=== PATIENT | male | born 1955 | race American Indian/Alaskan Native ===

== ENCOUNTER 2016-10-28 17:30 | Emergency (ER) | payer OTHER ==
[2016-10-28] MEDS ORDERED: XYLOCAINE 1% MPF 5 mL INFILTRATI ONE (21:45)
[2016-10-28] MEDS ORDERED: ROCEPHIN IM ONE (21:45)
[2016-10-28] MEDS ORDERED: TORADOL IM ONE (21:45)
--- NOTE | 2016-10-28 22:05 | Emergency Department Report ---
ED Extremity Problem HPI - General Chief complaint: Extremity Injury, Lower Stated complaint: LEFT FOOT SWOLLEN Time Seen by Provider: 10/28/16 21:33 Source: patient Mode of arrival: Ambulatory Limitations: No Limitations - History of Present Illness Initial comments: PT states he was treated for athlete's foot last year. PT states he ran out of RX cream. PT states he bout some otc cream but it did not seem to help. PT c/ o redness and swelling to L foot x 2 weeks. PT states he was taking ASA at home for pain, but no relief. PT has not taken anything for pain today. MD Complaint: extremity pain, extremity swelling Onset/Timin -: Gradual, week(s) Location: left, lower extremity (foot ) -: No fever Severity scale (0 -10): 10 Quality: sharp Consistency: constant Improves with: nothing Worsens with: weight bearing, walking, palpation Associated Symptoms: denies other symptoms - Related Data Previous Rx's Medication Instructions Recorded Last Taken Type Clotrimazole [Athlete's Foot] 60 gm TP TID #1 cream..g. 07/06/16 Unknown Rx Ibuprofen [Motrin 600 MG tab] 600 mg PO Q8H PRN #25 tablet 07/06/16 Unknown Rx Allergies Allergy/AdvReac Type Severity Reaction Status Date / Time No Known Allergies Allergy Verified 10/28/16 17:54 ED Review of Systems ROS: Stated complaint: LEFT FOOT SWOLLEN Other details as noted in HPI Comment: All other systems reviewed and negative Constitutional: denies: chills, fever Endocrine: denies: increased hunger, increased thirst, increased urine Gastrointestinal: denies: nausea, vomiting Musculoskeletal: as per HPI Skin: as per HPI, change in color ED Past Medical Hx - Past Medical History Hx Hypertension: No Hx Liver Disease: No Hx Renal Disease: No Hx Arthritis: Yes (L WRIST) Hx Seizures: No Hx Asthma: No - Surgical History Additional Surgical History: LEFT HAND SURGERY. LEFT GREAT TOE SURGERY - Social History Smoking Status: Never Smoker Substance Use Type: None - Medications Home Medications: Home Medications Medication Instructions Recorded Confirmed Last Taken Type Clotrimazole [Athlete's Foot] 60 gm TP TID #1 cream..g. 07/06/16 Unknown Rx Ibuprofen [Motrin 600 MG tab] 600 mg PO Q8H PRN #25 tablet 11/26/16 Unknown Rx ED Physical Exam - General Limitations: No Limitations General appearance: alert, in no apparent distress - Head Head exam: Present: atraumatic, normocephalic - Eye Eye exam: Present: normal appearance. Absent: conjunctival injection - ENT ENT exam: Present: normal exam - Neck Neck exam: Present: normal inspection - Respiratory Respiratory exam: Present: normal lung sounds bilaterally. Absent: respiratory distress - Cardiovascular Cardiovascular Exam: Present: regular rate, normal rhythm - Extremities Exam Extremities exam: Present: tenderness, normal capillary refill, pedal edema - Expanded Lower Extremity Exam Left Foot/Toe exam: Present: tenderness, swelling, erythema (to L dorsal foot with warmth and tenderness ). Absent: ecchymosis, deformity, puncture wound Neuro vascular tendon exam: Present: no vascular compromise. Absent: pulse deficit - Back Exam Back exam: Present: normal inspection, full ROM - Neurological Exam Neurological exam: Present: alert, oriented X3 - Psychiatric Psychiatric exam: Present: normal affect, normal mood - Skin Skin exam: Present: warm, dry, erythema, other (white flaky rash in between toes of the L foot ) ED Course Vital Signs 10/28/16 17:57 Temperature 98.5 F Pulse Rate 92 H Respiratory 19 Rate Blood Pressure 137/93 O2 Sat by Pulse 99 Oximetry - Reevaluation(s) Reevaluation #1: 10/28/16 22:04 PT aware of dx and plan of care. PT has no questions at this time. Strict return precautions given - Pulse Oximetry Interpretation Digit-Finger Initial Pulse Oximetry Readin Actions Taken: none ED Medical Decision Making - Differential Diagnosis tinea pedis, gout, cellulitis Critical care attestation.: If time is entered above; I have spent that time in minutes in the direct care of this critically ill patient, excluding procedure time. ED Disposition Clinical Impression: Cellulitis of foot without toes, left, Tinea pedis of left foot Disposition: DISCHARGED TO HOME OR SELFCARE Is pt being admited?: No Does the pt Need Aspirin: No Condition: Stable Instructions: Tinea Pedis (ED), Cellulitis (ED) Additional Instructions: Recheck in 2 days, sooner if fevers, chills, nausea or vomiting Have your BP rechecked on follow up Referrals: PRIMARY CARE, [Primary Care Provider] - 3-5 Days Time of Disposition: 22:10
[2016-10-28 22:21] VITALS: BP 158/101
== END 2016-10-28 22:21 | disposition home or self-care (01) ==
LOC: ED 17:30
DX: L03.116 Cellulitis of left lower limb (principal); B35.3 Tinea pedis; M19.90 Unspecified osteoarthritis, unspecified site
CPT/HCPCS: 96372; 99282; J0696; J1885

== ENCOUNTER 2017-09-30 10:44 | Emergency (ER) | payer OTHER ==
[2017-09-30 11:00] VITALS: BP 133/86
[2017-09-30 11:18] LABS: Basophils % (Auto) 0.3 % (0.0-1.8); Hematocrit 40.2 % (35.5-45.6); Hemoglobin 13.8 gm/dl (11.8-15.2); Lymphocytes % (Auto) 10.4 % (13.4-35.0); Mean Corpuscular HGB Conc 34 % (32-34); Mean Corpuscular Hemoglobin 31 pg (28-32); Mean Corpuscular Volume 90 fl (84-94); Monocytes # (Auto) 0.7 K/mm3 (0.0-0.8); Monocytes % (Auto) 7.1 % (0.0-7.3); Platelet Count 246 K/mm3 (140-440); Red Blood Count 4.47 M/mm3 (3.65-5.03); Red Cell Distribution Width 13.4 % (13.2-15.2)
--- NOTE | 2017-09-30 11:34 | XRay Report ---
RIGHT KNEE, 3 views: History: Right knee pain Findings: There is severe anterior soft tissue swelling which could represent a cellulitis. No soft tissue gas or foreign body is identified. There are moderate osteoarthritic changes in the medial compartment and patellofemoral space. No evidence for fracture or bone lesion. Small joint effusion. IMPRESSION: Osteoarthritis. Small joint effusion. Nonspecific anterior soft tissue swelling which could represent cellulitis.
[2017-09-30 11:56] LABS: BUN/Creatinine Ratio 13; Blood Urea Nitrogen 10 mg/dL (9-20); Hemolysis Index 2
[2017-09-30] MEDS ORDERED: MOTRIN PO ONE (13:00)
[2017-09-30] MEDS ORDERED: VIBRAMYCIN PO ONE (13:00)
--- NOTE | 2017-09-30 13:01 | Emergency Department Report ---
ED Extremity Problem HPI - General Chief complaint: Extremity Injury, Lower Stated complaint: RIGHT KNEE PAIN Time Seen by Provider: 09/30/17 12:52 Source: patient Mode of arrival: Ambulatory Limitations: No Limitations - History of Present Illness Initial comments: Patient is a 62-year-old [place] male who states he may have had a bug bite to the right anterior knee 2 weeks ago now has swelling and redness and pain to the anterior knee. He is able to bend the knee however there is pain. Pain is an aching sensation 6 out of 10 in severity. Patient denies any fever nausea vomiting diarrhea chest pain shortness of breath this time. He is amateur and able to bear weight. - Related Data Previous Rx's Medication Instructions Recorded Last Taken Type Cephalexin [Keflex] 500 mg PO Q6HR #40 capsule 10/28/16 Unknown Rx Clotrimazole [Athlete's Foot] 60 gm TP BID #1 cream..g. 10/28/16 Unknown Rx Sulfamethoxazole/Trimethoprim 1 each PO BID #20 tablet 10/28/16 Unknown Rx [Bactrim DS TAB] traMADol [Ultram] 50 mg PO Q6HR PRN #14 tablet 10/28/16 Unknown Rx Doxycycline [Vibramycin CAP] 100 mg PO Q12HR #20 capsule 09/30/17 Unknown Rx Ibuprofen [Motrin] 800 mg PO Q8HR PRN #20 tablet 09/30/17 Unknown Rx oxyCODONE /ACETAMINOPHEN [Percocet 1 tab PO Q6HR PRN #12 tablet 09/30/17 Unknown Rx 5/325] Allergies Allergy/AdvReac Type Severity Reaction Status Date / Time No Known Allergies Allergy Verified 10/28/16 17:54 ED Review of Systems ROS: Stated complaint: RIGHT KNEE PAIN Other details as noted in HPI Comment: All other systems reviewed and negative ED Past Medical Hx - Past Medical History Previous Medical History?: Yes Hx Hypertension: No Hx Liver Disease: No Hx Renal Disease: No Hx Arthritis: Yes (L WRIST) Hx Seizures: No Hx Asthma: No - Surgical History Past Surgical History?: Yes Additional Surgical History: LEFT HAND SURGERY. LEFT GREAT TOE SURGERY - Social History Smoking Status: Never Smoker - Medications Home Medications: Home Medications Medication Instructions Recorded Confirmed Last Taken Type Cephalexin [Keflex] 500 mg PO Q6HR #40 capsule 10/28/16 Unknown Rx Clotrimazole [Athlete's Foot] 60 gm TP BID #1 cream..g. 10/28/16 Unknown Rx Sulfamethoxazole/Trimethoprim 1 each PO BID #20 tablet 10/28/16 Unknown Rx [Bactrim DS TAB] traMADol [Ultram] 50 mg PO Q6HR PRN #14 tablet 10/28/16 Unknown Rx Doxycycline [Vibramycin CAP] 100 mg PO Q12HR #20 capsule 09/30/17 Unknown Rx Ibuprofen [Motrin] 800 mg PO Q8HR PRN #20 tablet 09/30/17 Unknown Rx oxyCODONE /ACETAMINOPHEN [Percocet 1 tab PO Q6HR PRN #12 tablet 09/30/17 Unknown Rx 5/325] ED Physical Exam - General Limitations: No Limitations General appearance: alert, in no apparent distress - Head Head exam: Present: atraumatic, normocephalic - Eye Eye exam: Present: normal appearance - ENT ENT exam: Present: mucous membranes moist - Neck Neck exam: Present: normal inspection - Respiratory Respiratory exam: Present: normal lung sounds bilaterally. Absent: respiratory distress - Cardiovascular Cardiovascular Exam: Present: regular rate, normal rhythm. Absent: systolic murmur, diastolic murmur, rubs, gallop - GI/Abdominal GI/Abdominal exam: Present: soft, normal bowel sounds - Rectal Rectal exam: Present: deferred - Extremities Exam Extremities exam: Present: normal inspection, tenderness, joint swelling ( patient has erythema induration to the anterior knee with tenderness. There is warmth. There is no areas of fluctuance at this time. The posterior knee is non-painful he has full range of motion to the knee.) - Back Exam Back exam: Present: normal inspection - Neurological Exam Neurological exam: Present: alert, oriented X3 - Psychiatric Psychiatric exam: Present: normal affect, normal mood - Skin Skin exam: Present: warm, dry, intact, normal color. Absent: rash ED Course Vital Signs 09/30/17 10:55 Temperature 98.2 F Pulse Rate 105 H Respiratory 18 Rate Blood Pressure 133/86 O2 Sat by Pulse 97 Oximetry ED Medical Decision Making - Lab Data Result diagrams: 09/30/17 11:11 09/30/17 11:11 - Medical Decision Making Patient will be treated for cellulitis of the right knee will follow with orthopedics. Critical care attestation.: If time is entered above; I have spent that time in minutes in the direct care of this critically ill patient, excluding procedure time. ED Disposition Clinical Impression: Cellulitis of knee Disposition: DC-01 TO HOME OR SELFCARE Is pt being admited?: No Does the pt Need Aspirin: No Condition: Stable Instructions: Cellulitis (ED) Prescriptions: Doxycycline [Vibramycin CAP] 100 mg PO Q12HR #20 capsule Ibuprofen [Motrin] 800 mg PO Q8HR PRN #20 tablet PRN Reason: Pain oxyCODONE /ACETAMINOPHEN [Percocet 5/325] 1 tab PO Q6HR PRN #12 tablet PRN Reason: Pain Referrals: VELMA IQBAL MD [Staff Physician] - 3-5 Days
== END 2017-09-30 13:06 | disposition home or self-care (01) ==
LOC: ED 10:44
DX: L03.115 Cellulitis of right lower limb (principal); M19.90 Unspecified osteoarthritis, unspecified site
CPT/HCPCS: 36415; 80048; 85025; 99284

== ENCOUNTER 2017-10-05 00:31 | Emergency (ER) | payer OTHER ==
[2017-10-05] MEDS ORDERED: ASPIRIN PO ONE (01:58)
[2017-10-05 02:19] LABS: Basophils % (Auto) 0.5 % (0.0-1.8); Eosinophils # (Auto) 0.1 K/mm3 (0.0-0.4); Eosinophils % (Auto) 2.4 % (0.0-4.3); Hemoglobin 12.4 gm/dl (11.8-15.2); Lymphocytes # (Auto) 1.4 K/mm3 (1.2-5.4); Lymphocytes % (Auto) 30.2 % (13.4-35.0); Mean Corpuscular HGB Conc 34 % (32-34); Mean Corpuscular Hemoglobin 31 pg (28-32); Mean Corpuscular Volume 90 fl (84-94); Monocytes # (Auto) 0.5 K/mm3 (0.0-0.8); Monocytes % (Auto) 11.2 % (0.0-7.3); Platelet Count 310 K/mm3 (140-440); Red Blood Count 4.01 M/mm3 (3.65-5.03); Red Cell Distribution Width 13.2 % (13.2-15.2)
[2017-10-05 02:35] LABS: BUN/Creatinine Ratio 14; Blood Urea Nitrogen 11 mg/dL (9-20); Calcium 8.8 mg/dL (8.4-10.2); Hemolysis Index 0
--- NOTE | 2017-10-05 03:46 | XRay Report ---
FINAL REPORT EXAM: XR CHEST ROUTINE 2V HISTORY: chest pain COMPARISON: None available. FINDINGS:: Frontal and lateral views of the chest obtained. Cardiac silhouette is within normal limits. No focal consolidation or effusion. No pneumothorax. Visualized bony thorax is grossly intact. Mild tortuosity of the thoracic aorta. IMPRESSION:: No acute findings.
[2017-10-05] MEDS ORDERED: ZOFRAN ODT PO ONE (03:57)
[2017-10-05] MEDS ORDERED: ALUM-MAG HYDROX-SIMETH 200-200-20MG/5ML PO ONE (03:57)
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
--- NOTE | 2017-10-05 05:41 | Ultrasound Report ---
FINAL REPORT PROCEDURE: US ABDOMEN LIMITED TECHNIQUE: Real-time sonography in multiple planes of the gallbladder fossa and CBD with imaging of the adjacent liver, pancreas, and right kidney was performed with image documentation. CPT 61307 HISTORY: epigastric pain COMPARISON: No prior studies are available for comparison. FINDINGS: Liver: Normal size and echotexture with no evidence of cystic or solid mass lesion. Gallbladder: There is sludge in the gallbladder. There are no stones. There is no wall thickening or pericholecystic cystic fluid.. Intrahepatic bile ducts: Normal . Extrahepatic bile ducts: Normal . Pancreas: Normal as visualized with suboptimal depiction of the pancreatic tail. Right kidney: Normal echotexture. No focal renal mass, calculus, or hydronephrosis. Other: No free fluid. IMPRESSION: There is sludge in the gallbladder. There are no gallstones. There is no gallbladder wall thickening or pericholecystic fluid. There is no biliary ductal dilatation.
[2017-10-05 07:15] VITALS: BP 155/95
== END 2017-10-05 07:15 | disposition home or self-care (01) ==
LOC: ED 00:31
DX: R07.89 Other chest pain (principal); M19.90 Unspecified osteoarthritis, unspecified site
CPT/HCPCS: 36415; 71046; 76705; 80048; 84484; 85025; 93005; 93010; Q0162

== ENCOUNTER 2020-05-25 13:08 | Inpatient (IN) | payer OTHER ==
[2020-05-25] MEDS ORDERED: SODIUM CHLORIDE 0.9% 1000 ML IV SOLN IV ONE (14:17)
[2020-05-25] MEDS ORDERED: cefTRIAXone/NS 2 GM/100 ML 2 GM/100 ML BAG IV ONE ×2 (14:33→14:35)
[2020-05-25 14:37] LABS: Hematocrit 39.3 % (35.5-45.6); Hemoglobin 13.4 gm/dl (11.8-15.2); Mean Corpuscular HGB Conc 34 % (32-34); Mean Corpuscular Volume 91 fl (84-94); Platelet Count 509 K/mm3 (140-440); Red Blood Count 4.31 M/mm3 (3.65-5.03); Red Cell Distribution Width 14.1 % (13.2-15.2)
--- NOTE | 2020-05-25 14:43 | XRay Report ---
XR chest 1V ap INDICATION / CLINICAL INFORMATION: sepsis COMPARISON: 10/05/2017 report was reviewed FINDINGS: SUPPORT DEVICES: None. HEART / MEDIASTINUM: No significant abnormality. LUNGS / PLEURA: Lungs are clear. Costophrenic sulci are sharp. No pneumothorax. ADDITIONAL FINDINGS: No significant additional findings. IMPRESSION: 1. No acute findings. Signer Name: Teddy Fulton MD Signed: 05/25/2020 2:39 PM Workstation Name: [id number]
[2020-05-25 15:07] LABS: Calcium 10.3 mg/dL (8.4-10.2)
[2020-05-25 16:24] LABS: Bilirubin,Urine NEG (Negative); Blood,Urine LG (Negative); Color,Urine Amber (Yellow); Hyaline Casts,Urine 9 /LPF; Mucus,Urine FEW /HPF; Urobilinogen,Urine < 2.0 mg/dL (<2.0)
[2020-05-25 16:26] LABS: RBC,Urine > 182.0 /HPF (0.0-6.0); WBC,Urine > 182.0 /HPF (0.0-6.0)
--- NOTE | 2020-05-25 17:49 | Emergency Department Report ---
ED Abdominal Pain HPI - General Chief Complaint: Weakness Stated Complaint: ABD PAINS Time Seen by Provider: 05/25/20 14:16 Source: patient Mode of arrival: Ambulatory Limitations: No Limitations - History of Present Illness Initial Comments: Patient is a 64-year-old F Turkish male who has a history of prostate cancer who has just finished radiation treatment chemotherapy who is presenting with fatigue for the last several days as well as some worsening abdominal pain over the last month. He states that he has this sensation that he needs to urinate however only small amounts are coming out. He is going very frequently. Patient has some nausea but no vomiting. He denies fevers chills cough cold or congestion. States he feels somewhat constipated as well his last bowel movement was 2 days ago. Severity scale (0 -10): 0 - Related Data Previous Rx's Medication Instructions Recorded Last Taken Type Clotrimazole [Athlete's Foot] 60 gm TP BID #1 cream..g. 10/28/16 Unknown Rx Sulfamethoxazole/Trimethoprim 1 each PO BID #20 tablet 10/28/16 Unknown Rx [Bactrim DS TAB] cephALEXin [Keflex] 500 mg PO Q6HR #40 capsule 10/28/16 Unknown Rx traMADoL [Ultram] 50 mg PO Q6HR PRN #14 tablet 10/28/16 Unknown Rx DOXYCYCLINE Hyclate [Vibramycin 100 mg PO Q12HR #20 capsule 09/30/17 Unknown Rx CAP] Ibuprofen [Motrin] 800 mg PO Q8HR PRN #20 tablet 09/30/17 Unknown Rx oxyCODONE /ACETAMINOPHEN [Percocet 1 tab PO Q6HR PRN #12 tablet 09/30/17 Unknown Rx 5/325] Dicyclomine [Bentyl] 10 mg PO QID #12 capsule 10/05/17 Unknown Rx Famotidine [Pepcid] 20 mg PO BID #20 tablet 10/05/17 Unknown Rx traMADoL [Ultram] 50 mg PO Q6HR PRN #12 tablet 10/05/17 Unknown Rx Allergies Allergy/AdvReac Type Severity Reaction Status Date / Time No Known Allergies Allergy Verified 10/28/16 17:54 ED Review of Systems ROS: Stated complaint: ABD PAINS Other details as noted in HPI Comment: All other systems reviewed and negative ED Past Medical Hx - Past Medical History Hx Hypertension: No Hx Liver Disease: No Hx Renal Disease: No Hx Arthritis: Yes (L WRIST) Hx Seizures: No Hx Asthma: No Additional medical history: radiation 5 days a week - Surgical History Additional Surgical History: LEFT HAND SURGERY. LEFT GREAT TOE SURGERY, Biopsy - Social History Smoking Status: Never Smoker - Medications Home Medications: Home Medications Medication Instructions Recorded Confirmed Last Taken Type Clotrimazole [Athlete's Foot] 60 gm TP BID #1 cream..g. 10/28/16 Unknown Rx Sulfamethoxazole/Trimethoprim 1 each PO BID #20 tablet 10/28/16 Unknown Rx [Bactrim DS TAB] cephALEXin [Keflex] 500 mg PO Q6HR #40 capsule 10/28/16 Unknown Rx traMADoL [Ultram] 50 mg PO Q6HR PRN #14 tablet 10/28/16 Unknown Rx DOXYCYCLINE Hyclate [Vibramycin 100 mg PO Q12HR #20 capsule 09/30/17 Unknown Rx CAP] Ibuprofen [Motrin] 800 mg PO Q8HR PRN #20 tablet 09/30/17 Unknown Rx oxyCODONE /ACETAMINOPHEN [Percocet 1 tab PO Q6HR PRN #12 tablet 09/30/17 Unknown Rx 5/325] Dicyclomine [Bentyl] 10 mg PO QID #12 capsule 10/05/17 Unknown Rx Famotidine [Pepcid] 20 mg PO BID #20 tablet 10/05/17 Unknown Rx traMADoL [Ultram] 50 mg PO Q6HR PRN #12 tablet 10/05/17 Unknown Rx ED Physical Exam - General Limitations: No Limitations General appearance: alert, in no apparent distress - Head Head exam: Present: atraumatic, normocephalic - Eye Eye exam: Present: normal appearance, PERRL, EOMI - ENT ENT exam: Present: mucous membranes moist - Neck Neck exam: Present: normal inspection - Respiratory Respiratory exam: Present: normal lung sounds bilaterally. Absent: respiratory distress, wheezes, rales, rhonchi - Cardiovascular Cardiovascular Exam: Present: regular rate, normal rhythm. Absent: systolic murmur, diastolic murmur, rubs, gallop - GI/Abdominal GI/Abdominal exam: Present: distended, tenderness, guarding, hyperactive bowel sounds. Absent: rebound, rigid - Rectal Rectal exam: Present: deferred - Extremities Exam Extremities exam: Present: normal inspection - Back Exam Back exam: Present: normal inspection - Neurological Exam Neurological exam: Present: alert, oriented X3 - Psychiatric Psychiatric exam: Present: normal affect, normal mood - Skin Skin exam: Present: warm, dry, intact, normal color. Absent: rash ED Course Vital Signs 05/25/20 05/25/20 05/25/20 13:44 14:16 16:17 Temperature 98.1 F Pulse Rate 106 H 84 Respiratory 14 24 Rate Blood Pressure 84/60 Blood Pressure 76/49 118/76 [Right] O2 Sat by Pulse 97 100 Oximetry ED Medical Decision Making - Lab Data Result diagrams: 05/25/20 14:11 05/25/20 14:11 Lab Results 05/25/20 05/25/20 05/25/20 Range/Units 14:11 14:11 14:21 WBC 8.0 (4.5-11.0) K/mm3 RBC 4.31 (3.65-5.03) M/mm3 Hgb 13.4 (11.8-15.2) gm/dl Hct 39.3 (35.5-45.6) % MCV 91 (84-94) fl MCH 31 (28-32) pg MCHC 34 (32-34) % RDW 14.1 (13.2-15.2) % Plt Count 509 H (140-440) K/mm3 APTT (24.2-36.6) Sec. Sodium 127 L (137-145) mmol/L Potassium 4.9 (3.6-5.0) mmol/L Chloride 87.9 L (98-107) mmol/L Carbon Dioxide 24 (22-30) mmol/L Anion Gap 20 mmol/L BUN 52 H (9-20) mg/dL Creatinine 1.9 H (0.8-1.3) mg/dL Estimated GFR 44 ml/min BUN/Creatinine Ratio 27 % Glucose 138 H (75-100) mg/dL Lactic Acid 1.70 (0.7-2.0) mmol/L Calcium 10.3 H (8.4-10.2) mg/dL Total Bilirubin 1.00 (0.1-1.2) mg/dL AST 11 (5-40) units/L ALT 11 (7-56) units/L Alkaline Phosphatase 96 (35-129) units/L Total Protein 7.8 (6.3-8.2) g/dL Albumin 4.0 (3.9-5) g/dL Albumin/Globulin Ratio 1.1 % Urine Color (Yellow) Urine Turbidity (Clear) Urine pH (5.0-7.0) Ur Specific [place] (1.003-1.030) Urine Protein (Negative) mg/dL Urine Glucose (UA) (Negative) mg/dL Urine Ketones (Negative) mg/dL Urine Blood (Negative) Urine Nitrite (Negative) Urine Bilirubin (Negative) Urine Urobilinogen (<2.0) mg/dL Ur Leukocyte Esterase (Negative) Urine WBC (Auto) (0.0-6.0) /HPF Urine RBC (Auto) (0.0-6.0) /HPF U Epithel Cells (Auto) (0-13.0) /HPF Urine WBC Clumps /HPF Hyaline Casts /LPF Urine Mucus /HPF Urine Yeast (Budding) /HPF 05/25/20 05/25/20 Range/Units 15:03 16:19 WBC (4.5-11.0) K/mm3 RBC (3.65-5.03) M/mm3 Hgb (11.8-15.2) gm/dl Hct (35.5-45.6) % MCV (84-94) fl MCH (28-32) pg MCHC (32-34) % RDW (13.2-15.2) % Plt Count (140-440) K/mm3 APTT 24.8 (24.2-36.6) Sec. Sodium (137-145) mmol/L Potassium (3.6-5.0) mmol/L Chloride (98-107) mmol/L Carbon Dioxide (22-30) mmol/L Anion Gap mmol/L BUN (9-20) mg/dL Creatinine (0.8-1.3) mg/dL Estimated GFR ml/min BUN/Creatinine Ratio % Glucose (75-100) mg/dL Lactic Acid (0.7-2.0) mmol/L Calcium (8.4-10.2) mg/dL Total Bilirubin (0.1-1.2) mg/dL AST (5-40) units/L ALT (7-56) units/L Alkaline Phosphatase (35-129) units/L Total Protein (6.3-8.2) g/dL Albumin (3.9-5) g/dL Albumin/Globulin Ratio % Urine Color [place] (Yellow) Urine Turbidity Cloudy (Clear) Urine pH 6.0 (5.0-7.0) Ur Specific [place] 1.013 (1.003-1.030) Urine Protein 100 mg/dl (Negative) mg/dL Urine Glucose (UA) Neg (Negative) mg/dL Urine Ketones Neg (Negative) mg/dL Urine Blood Lg (Negative) Urine Nitrite Pos (Negative) Urine Bilirubin Neg (Negative) Urine Urobilinogen < 2.0 (<2.0) mg/dL Ur Leukocyte Esterase Lg (Negative) Urine WBC (Auto) > 182.0 H (0.0-6.0) /HPF Urine RBC (Auto) > 182.0 (0.0-6.0) /HPF U Epithel Cells (Auto) 1.0 (0-13.0) /HPF Urine WBC Clumps 3+ /HPF Hyaline Casts 9 /LPF Urine Mucus Few /HPF Urine Yeast (Budding) 2+ /HPF Patient's baseline BUN/creatinine is normal and the last we have on file from 2 years ago was 11 and 0.5 respectively - Medical Decision Making Casillas catheter was placed after I did a bladder scan with ultrasound. Patient immediately had approximately a liter of urine drained. There is evidence of urinary tract infection. Patient also is in renal failure from his obstruction. Patient was given IV fluids which did improve his blood pressure. Patient be admitted for UTI. Critical care attestation.: If time is entered above; I have spent that time in minutes in the direct care of this critically ill patient, excluding procedure time. ED Disposition Clinical Impression: Acute renal injury, Urinary obstruction Acute cystitis Qualifiers: Hematuria presence: with hematuria Qualified Code(s): N30.01 - Acute cystitis with hematuria Disposition: OP ADMIT IP TO THIS HOSP Is pt being admited?: Yes Does the pt Need Aspirin: No Condition: Stable Time of Disposition: 17:51
[2020-05-25] MEDS ORDERED: SODIUM CHLORIDE 0.9% 1000 ML 1,000 ML IV ONE (18:39)
--- NOTE | 2020-05-25 18:42 | History and Physical Report ---
History of Present Illness Chief complaint: I feel weak in my stomach is getting big History of present illness: 64 YO Male with CaP S/P Radiation Therapy, OA presents to ED for evaluation. Patient states that he had experienced abdominal discomfort over the past 1 month with progressively worsening symptoms over the past 2 days. Patient acknowledges dysuria as well as urinary urgency. Patient also acknowledges s mall urine stream. Patient also acknowledges nausea but no vomiting. Patient transported to [facility] via private vehicle for further care and evaluation. Patient seen and evaluated in the emergency department. Lab and imaging studies reviewed. Patient underwent bladder scan in the emergency department and was found to have a distended bladder with over 1 L of urine. Patient also found to have concomitant urinary tract infection. Patient underwent placement of a Casillas catheter with resultant decompression of the bladder. Patient admitted to medical floor and initiated on IV antibiotic therapy. Patient denies fever, chills, chest pain, palpitations, productive cough, skin rash, recent ill contacts or known exposure to COVID-19. Advanced care planning conducted in ED. No prior admission for review. All medication list the time of admission has been reconciled. Past History Past Medical History: arthritis Past Surgical History: Other (LEFT HAND SURGERY. LEFT GREAT TOE SURGERY, Biopsy) Social history: . denies: smoking, alcohol abuse, prescription drug abuse Family history: no significant family history (Reviewed) Medications and Allergies Allergies Allergy/AdvReac Type Severity Reaction Status Date / Time No Known Allergies Allergy Verified 10/28/16 17:54 Home Medications Medication Instructions Recorded Confirmed Last Taken Type Clotrimazole [Athlete's Foot] 60 gm TP BID #1 cream..g. 10/28/16 Unknown Rx Sulfamethoxazole/Trimethoprim 1 each PO BID #20 tablet 10/28/16 Unknown Rx [Bactrim DS TAB] cephALEXin [Keflex] 500 mg PO Q6HR #40 capsule 10/28/16 Unknown Rx traMADoL [Ultram] 50 mg PO Q6HR PRN #14 tablet 10/28/16 Unknown Rx DOXYCYCLINE Hyclate [Vibramycin 100 mg PO Q12HR #20 capsule 09/30/17 Unknown Rx CAP] Ibuprofen [Motrin] 800 mg PO Q8HR PRN #20 tablet 09/30/17 Unknown Rx oxyCODONE /ACETAMINOPHEN [Percocet 1 tab PO Q6HR PRN #12 tablet 09/30/17 Unknown Rx 5/325] Dicyclomine [Bentyl] 10 mg PO QID #12 capsule 10/05/17 Unknown Rx Famotidine [Pepcid] 20 mg PO BID #20 tablet 10/05/17 Unknown Rx traMADoL [Ultram] 50 mg PO Q6HR PRN #12 tablet 10/05/17 Unknown Rx Active Meds: Active Medications Sodium Chloride (Nacl 0.9% 1000 Ml) 1,000 mls @ 125 mls/hr IV ONCE ONE Stop: 05/26/20 02:38 Review of Systems Constitutional: no weight loss, no weight gain, no fever, no chills Ears, nose, mouth and throat: no ear pain, no tinnitis, no decreased hearing, no nasal congestion Cardiovascular: no chest pain, no orthopnea Respiratory: no cough, no cough with sputum, no excessive sputum, no shortness of breath Gastrointestinal: abdominal pain, nausea, no vomiting, no diarrhea, no melena Genitourinary Male: dysuria, urinary frequency, urinary hesitancy, no incontinence Rectal: no pain, no incontinence, no bleeding Musculoskeletal: no neck stiffness, no arm numbness/tingling, no low back pain, no shooting leg pain Integumentary: no pruritis, no redness, no wounds, no boils Neurological: no transient paralysis, no paralysis, no weakness, no numbness, no tingling, no seizures Psychiatric: no anxiety, no change in sleep habits, no insomnia, no hypersomnia, no change in appetite, no suicidal ideation, no disorientation Endocrine: no cold intolerance, no heat intolerance, no polydipsia, no nocturia, no excessive sweating Hematologic/Lymphatic: no easy bruising, no easy bleeding, no lymphadenopathy Allergic/Immunologic: no urticaria, no allergic rhinitis, no persistent infections, no anaphylaxis Exam - Constitutional Vitals: Temp Pulse Resp BP Pulse Ox 98.1 F 84 24 118/76 100 05/25/20 13:44 05/25/20 14:16 05/25/20 14:16 05/25/20 16:17 05/25/20 14:16 General appearance: Present: mild distress - EENT Eyes: Present: PERRL ENT: hearing intact, clear oral mucosa - Neck Neck: Present: supple, normal ROM - Respiratory Respiratory effort: normal Respiratory: bilateral: CTA - Cardiovascular Heart Sounds: Present: S1 & S2. Absent: rub, click - Extremities Extremities: pulses symmetrical, No edema Peripheral Pulses: within normal limits - Abdominal General gastrointestinal: Present: soft, non-tender, distended, normal bowel sounds Male genitourinary: Present: normal - Integumentary Integumentary: Present: clear, warm, dry - Musculoskeletal Musculoskeletal: gait normal, strength equal bilaterally - Psychiatric Psychiatric: appropriate mood/affect, intact judgment & insight - Neurologic Neurologic: CNII-XII intact, moves all extremities Results - Labs CBC & Chem 7: 05/25/20 14:11 05/25/20 14:11 Labs: Abnormal lab results 05/25/20 05/25/20 05/25/20 Range/Units 14:11 14:11 16:19 Plt Count 509 H (140-440) K/mm3 Sodium 127 L (137-145) mmol/L Chloride 87.9 L (98-107) mmol/L BUN 52 H (9-20) mg/dL Creatinine 1.9 H (0.8-1.3) mg/dL Glucose 138 H (75-100) mg/dL Calcium 10.3 H (8.4-10.2) mg/dL Urine WBC (Auto) > 182.0 H (0.0-6.0) /HPF Assessment and Plan - Patient Problems (1) UTI (urinary tract infection) Current Visit: Yes Status: Acute Qualifiers: Encounter type: initial encounter Plan to address problem: Urinalysis, CBC, CMP, IV antibiotic therapy, supportive care. (2) HEATHER (acute kidney injury) Current Visit: Yes Status: Acute Plan to address problem: Monitor urine output every shift, IV fluid resuscitation therapy, BMP, repeat BMP in a.m. to monitor serum creatinine. (3) Hyponatremia syndrome Current Visit: Yes Status: Acute Plan to address problem: IV fluid resuscitation therapy, BMP, repeat BMP in a.m. to monitor serum sodium. (4) Urinary obstruction Current Visit: Yes Status: Acute Plan to address problem: Patient underwent bladder scan in the emergency department and subsequent placement of Casillas catheter for bladder decompression. Outpatient urology follow-up. (5) DVT prophylaxis Current Visit: Yes Status: Acute Plan to address problem: SCD to bilateral lower extremities while in bed, patient is ambulatory. (6) Advance care planning Current Visit: Yes Status: Acute Plan to address problem: Disease education conducted, prognosis discussed, patient is full code, patient knowledge understanding and agreement with care plan, +30 minutes.
[2020-05-25] MEDS ORDERED: ALBUTEROL 2.5 MG/3 ML NEBU IH PRN (18:43)
[2020-05-25] MEDS ORDERED: ONDANSETRON 4 MG/2 ML INJ IV PRN (18:43)
[2020-05-25] MEDS ORDERED: ACETAMINOPHEN 325 MG TAB PO PRN (18:43)
[2020-05-25] MEDS ORDERED: SODIUM CHLORIDE 0.9% 1000 ML 1,000 ML ONE (18:52)
[2020-05-25] MEDS ORDERED: FAMOTIDINE 20 MG TAB PO SCH (22:00)
[2020-05-25] MEDS: SODIUM CHLORIDE 0.9% 1000 ML 1,000 ML IV SCH (23:50)
[2020-05-26] MEDS: DICYCLOMINE 10 MG CAP PO SCH ×5 (01:59→21:29)
[2020-05-26] MEDS: CLOTRIMAZOLE 1% CREAM 15 GM TP SCH ×3 (02:01→21:31)
[2020-05-26 08:06] LABS: BUN/Creatinine Ratio 31; Blood Urea Nitrogen 34 mg/dL (9-20); Calcium 8.5 mg/dL (8.4-10.2); Hemolysis Index 1
[2020-05-26] MEDS: oxyCODONE /ACETAMINOPHEN 5-325MG TAB PO PRN ×3 (09:45→21:29)
[2020-05-26] MEDS ORDERED: cefTRIAXone/NS 2 GM/100 ML 2 GM/100 ML BAG IV SCH (10:00)
[2020-05-26] MEDS: cefTRIAXone/NS 1 GM/50 ML 1 GM/50 ML BAG IV SCH (10:35)
[2020-05-26] MEDS: FAMOTIDINE 20 MG TAB PO SCH ×2 (10:36→21:29)
--- NOTE | 2020-05-26 10:50 | Progress Note ---
Assessment and Plan Assessment and plan: UTI (urinary tract infection) Urinalysis, CBC, CMP, IV antibiotic therapy, supportive care. HEATHER (acute kidney injury) Monitor urine output every shift, IV fluid resuscitation therapy, BMP, repeat BMP in a.m. to monitor serum creatinine. Hyponatremia syndrome IV fluid resuscitation therapy, BMP, repeat BMP in a.m. to monitor serum sodium. Urinary obstruction Patient underwent bladder scan in the emergency department and subsequent placement of Casillas catheter for bladder decompression. Outpatient urology follow-up. Check CT abd/pelvis for further evaluation DVT prophylaxis SCD to bilateral lower extremities while in bed, patient is ambulatory. History Interval history: 64 YO Male with CaP S/P Radiation Therapy, OA presents to ED for evaluation. Patient states that he had experienced abdominal discomfort over the past 1 month with progressively worsening symptoms over the past 2 days. Patient acknowledges dysuria as well as urinary urgency. Patient also acknowledges small urine stream. Hospitalist Physical - Constitutional Vitals: Temp Pulse Resp BP Pulse Ox 98.0 F 80 18 106/75 99 05/26/20 04:19 05/26/20 04:19 05/26/20 04:19 05/26/20 04:19 05/26/20 06:36 General appearance: Present: no acute distress - EENT Eyes: Present: PERRL, EOM intact ENT: hearing intact, clear oral mucosa, dentition normal - Neck Neck: Present: supple, normal ROM - Respiratory Respiratory effort: normal Respiratory: bilateral: CTA - Cardiovascular Rhythm: regular Heart Sounds: Present: S1 & S2. Absent: gallop, rub - Extremities Extremities: no ischemia, No edema, Full ROM - Abdominal General gastrointestinal: soft, non-tender, non-distended, normal bowel sounds - Integumentary Integumentary: Present: clear, warm, dry - Neurologic Neurologic: CNII-XII intact, moves all extremities Results - Labs CBC & Chem 7: 05/25/20 14:11 05/26/20 07:03 Labs: Laboratory Last Values WBC 8.0 K/mm3 (4.5-11.0) 05/25/20 14:11 RBC 4.31 M/mm3 (3.65-5.03) 05/25/20 14:11 Hgb 13.4 gm/dl (11.8-15.2) 05/25/20 14:11 Hct 39.3 % (35.5-45.6) 05/25/20 14:11 MCV 91 fl (84-94) 05/25/20 14:11 MCH 31 pg (28-32) 05/25/20 14:11 MCHC 34 % (32-34) 05/25/20 14:11 RDW 14.1 % (13.2-15.2) 05/25/20 14:11 Plt Count 509 K/mm3 (140-440) H 05/25/20 14:11 APTT 24.8 Sec. (24.2-36.6) 05/25/20 15:03 Sodium 135 mmol/L (137-145) L D 05/26/20 07:03 Potassium 4.3 mmol/L (3.6-5.0) 05/26/20 07:03 Chloride 102.2 mmol/L (98-107) 05/26/20 07:03 Carbon Dioxide 26 mmol/L (22-30) 05/26/20 07:03 Anion Gap 11 mmol/L 05/26/20 07:03 BUN 34 mg/dL (9-20) H 05/26/20 07:03 Creatinine 1.1 mg/dL (0.8-1.3) 05/26/20 07:03 Estimated GFR > 60 ml/min 05/26/20 07:03 BUN/Creatinine Ratio 31 % 05/26/20 07:03 Glucose 104 mg/dL (75-100) H 05/26/20 07:03 Lactic Acid 1.20 mmol/L (0.7-2.0) 05/25/20 17:21 Calcium 8.5 mg/dL (8.4-10.2) D 05/26/20 07:03 Total Bilirubin 1.00 mg/dL (0.1-1.2) 05/25/20 14:11 AST 11 units/L (5-40) 05/25/20 14:11 ALT 11 units/L (7-56) 05/25/20 14:11 Alkaline Phosphatase 96 units/L (35-129) 05/25/20 14:11 Total Protein 7.8 g/dL (6.3-8.2) 05/25/20 14:11 Albumin 4.0 g/dL (3.9-5) 05/25/20 14:11 Albumin/Globulin Ratio 1.1 % 05/25/20 14:11 Urine Color [place] (Yellow) 05/25/20 16:19 Urine Turbidity Cloudy (Clear) 05/25/20 16:19 Urine pH 6.0 (5.0-7.0) 05/25/20 16:19 Ur Specific [place] 1.013 (1.003-1.030) 05/25/20 16:19 Urine Protein 100 mg/dl mg/dL (Negative) 05/25/20 16:19 Urine Glucose (UA) Neg mg/dL (Negative) 05/25/20 16:19 Urine Ketones Neg mg/dL (Negative) 05/25/20 16:19 Urine Blood Lg (Negative) 05/25/20 16:19 Urine Nitrite Pos (Negative) 05/25/20 16:19 Urine Bilirubin Neg (Negative) 05/25/20 16:19 Urine Urobilinogen < 2.0 mg/dL (<2.0) 05/25/20 16:19 Ur Leukocyte Esterase Lg (Negative) 05/25/20 16:19 Urine WBC (Auto) > 182.0 /HPF (0.0-6.0) H 05/25/20 16:19 Urine RBC (Auto) > 182.0 /HPF (0.0-6.0) 05/25/20 16:19 U Epithel Cells (Auto) 1.0 /HPF (0-13.0) 05/25/20 16:19 Urine WBC Clumps 3+ /HPF 05/25/20 16:19 Hyaline Casts 9 /LPF 05/25/20 16:19 Urine Mucus Few /HPF 05/25/20 16:19 Urine Yeast (Budding) 2+ /HPF 05/25/20 16:19 Microbiology: Microbiology 05/25/20 14:21 Peripheral/Venous Blood Culture - Preliminary Culture in Progress 05/25/20 14:21 Peripheral/Venous Blood Culture - Preliminary Culture in Progress Casillas/IV: IV Catheter Type [Right INT / Saline Lock Antecubital] Active Medications - Current Medications Current Medications: Generic Name Dose Route Start Last Admin Trade Name Freq PRN Reason Stop Dose Admin Acetaminophen 650 mg 05/25/20 18:43 Tylenol PO Q4H PRN Pain MILD(1-3)/Fever >100.5/LOUISE Albuterol 2.5 mg 05/25/20 18:43 Proventil IH Q4HRT PRN Shortness Of Breath Clotrimazole 1 applic 05/25/20 22:00 05/26/20 02:01 Lotrimin TP Not Given BID JERAMY Dicyclomine HCl 10 mg 05/25/20 22:00 05/26/20 01:59 Bentyl PO Not Given QID JERAMY Famotidine 20 mg 05/26/20 10:00 05/26/20 10:36 Pepcid PO 20 mg BID JERAMY Administration Sodium Chloride 1,000 mls @ 125 mls/hr 05/25/20 18:45 05/25/20 23:50 Nacl 0.9% 1000 Ml IV 125 mls/hr DIRECT JERAMY Administration Ceftriaxone Sodium 1 gm in 50 mls @ 100 mls/hr 05/26/20 10:00 05/26/20 10:35 Rocephin/Ns 1 Gm/50 Ml IV 100 mls/hr Q24HR JERAMY Administration Protocol Ondansetron HCl 4 mg 05/25/20 18:43 Zofran IV Q8H PRN Nausea And Vomiting Oxycodone/Acetaminophen 1 tab 05/25/20 18:45 05/26/20 09:45 Percocet 5/325 PO 1 tab Q6HR PRN Administration PAIN Sodium Chloride 10 ml 05/25/20 22:00 05/26/20 10:36 Sodium Chloride Flush Syringe 10 Ml IV 10 ml BID JERAMY Administration Sodium Chloride 10 ml 05/25/20 18:43 Sodium Chloride Flush Syringe 10 Ml IV PRN PRN LINE FLUSH
--- NOTE | 2020-05-26 11:23 | Cat Scan Report ---
CT ABDOMEN AND PELVIS WITHOUT CONTRAST HISTORY: UTI, urinary obstruction COMPARISON: None TECHNIQUE: Routine abdominal and pelvic CT exam performed without contrast. Lack of intravenous cont rast limits evaluation of the vascular and solid organs.. All CT scans at this location are performed using CT dose reduction for ALARA by means of automated exposure control. FINDINGS: CT ABDOMEN: Lung Bases: No significant abnormality. Liver: No significant abnormality. Biliary: No significant abnormality. Spleen: No significant abnormality. Unenlarged. Pancreas: No significant abnormality. Adrenals: No significant abnormality. Kidneys: No stones, pelvocaliectasis, ureterectasis. No perinephric or periureteral stranding. Small 1 cm cyst in the posterior left kidney. Lymphatics: No lymphadenopathy. Vasculature: No significant abnormality. Bowel/Peritoneum: No significant abnormality. No free air. No free fluid. Normal appendix. CT PELVIC: : There is a Casillas catheter in the bladder. The bladder appears diffusely thick-walled. Lymphatics: No lymphadenopathy. Osseous Structures: No aggressive appearing osseous lesions. Additional Findings: None IMPRESSION: 1. Casillas catheter in the urinary bladder with diffuse wall thickening of the urinary bladder likely r eflecting chronic bladder outlet obstruction. No hydronephrosis or urinary stones identified. Signer Name: Roberto Hendrix MD Signed: 05/26/2020 11:19 AM Workstation Name: [id number]
[2020-05-27] MEDS: SODIUM CHLORIDE 0.9% 1000 ML 1,000 ML IV SCH (04:57)
[2020-05-27 06:48] LABS: Hematocrit 29.3 % (35.5-45.6); Hemoglobin 10.1 gm/dl (11.8-15.2); Mean Corpuscular HGB Conc 35 % (32-34); Mean Corpuscular Volume 92 fl (84-94); Platelet Count 289 K/mm3 (140-440); Red Cell Distribution Width 14.2 % (13.2-15.2)
[2020-05-27 07:07] LABS: BUN/Creatinine Ratio 21; Blood Urea Nitrogen 19 mg/dL (9-20); Calcium 8.3 mg/dL (8.4-10.2); Hemolysis Index 3
--- NOTE | 2020-05-27 08:45 | Progress Note ---
Assessment and Plan Assessment and plan: UTI (urinary tract infection) Urinalysis, CBC, CMP, IV antibiotic therapy, supportive care. HEATHER (acute kidney injury) Monitor urine output every shift, IV fluid resuscitation therapy, BMP, repeat BMP in a.m. to monitor serum creatinine. Hyponatremia syndrome IV fluid resuscitation therapy, BMP, repeat BMP in a.m. to monitor serum sodium. Urinary obstruction Patient underwent bladder scan in the emergency department and subsequent placement of Casillas catheter for bladder decompression. Outpatient urology follow-up. Check CT abd/pelvis for further evaluation DVT prophylaxis SCD to bilateral lower extremities while in bed, patient is ambulatory. 05/27/2020. Blood cultures x24 hours are negative. Continue to follow blood and urine cultures. Acute kidney injury resolved. Etiology secondary to vasomotor nephropathy. Follow-up CBC and BMP in a.m. Anticipate discharge in a.m. History Interval history: 64 YO Male with CaP S/P Radiation Therapy, OA presents to ED for evaluation. Patient states that he had experienced abdominal discomfort over the past 1 month with progressively worsening symptoms over the past 2 days. Patient acknowledges dysuria as well as urinary urgency. Patient also acknowledges small urine stream. Hospitalist Physical - Constitutional Vitals: Temp Pulse Resp BP Pulse Ox 97.9 F 63 16 104/73 100 05/27/20 04:38 05/27/20 04:38 05/27/20 04:38 05/27/20 04:38 05/27/20 04:38 General appearance: Present: no acute distress - EENT Eyes: Present: PERRL, EOM intact ENT: hearing intact, clear oral mucosa, dentition normal - Neck Neck: Present: supple, normal ROM - Respiratory Respiratory effort: normal Respiratory: bilateral: CTA - Cardiovascular Rhythm: regular Heart Sounds: Present: S1 & S2. Absent: gallop, rub - Extremities Extremities: no ischemia, No edema, Full ROM - Abdominal General gastrointestinal: soft, non-tender, non-distended, normal bowel sounds - Integumentary Integumentary: Present: clear, warm, dry - Neurologic Neurologic: CNII-XII intact, moves all extremities Results - Labs CBC & Chem 7: 05/27/20 05:16 05/27/20 05:16 Labs: Laboratory Last Values WBC 2.9 K/mm3 (4.5-11.0) L 05/27/20 05:16 RBC 3.20 M/mm3 (3.65-5.03) L 05/27/20 05:16 Hgb 10.1 gm/dl (11.8-15.2) L D 05/27/20 05:16 Hct 29.3 % (35.5-45.6) L D 05/27/20 05:16 MCV 92 fl (84-94) 05/27/20 05:16 MCH 32 pg (28-32) 05/27/20 05:16 MCHC 35 % (32-34) H 05/27/20 05:16 RDW 14.2 % (13.2-15.2) 05/27/20 05:16 Plt Count 289 K/mm3 (140-440) 05/27/20 05:16 APTT 24.8 Sec. (24.2-36.6) 05/25/20 15:03 Sodium 136 mmol/L (137-145) L 05/27/20 05:16 Potassium 4.4 mmol/L (3.6-5.0) 05/27/20 05:16 Chloride 102.7 mmol/L (98-107) 05/27/20 05:16 Carbon Dioxide 26 mmol/L (22-30) 05/27/20 05:16 Anion Gap 12 mmol/L 05/27/20 05:16 BUN 19 mg/dL (9-20) 05/27/20 05:16 Creatinine 0.9 mg/dL (0.8-1.3) 05/27/20 05:16 Estimated GFR > 60 ml/min 05/27/20 05:16 BUN/Creatinine Ratio 21 % 05/27/20 05:16 Glucose 99 mg/dL (75-100) 05/27/20 05:16 Lactic Acid 1.20 mmol/L (0.7-2.0) 05/25/20 17:21 Calcium 8.3 mg/dL (8.4-10.2) L 05/27/20 05:16 Total Bilirubin 1.00 mg/dL (0.1-1.2) 05/25/20 14:11 AST 11 units/L (5-40) 05/25/20 14:11 ALT 11 units/L (7-56) 05/25/20 14:11 Alkaline Phosphatase 96 units/L (35-129) 05/25/20 14:11 Total Protein 7.8 g/dL (6.3-8.2) 05/25/20 14:11 Albumin 4.0 g/dL (3.9-5) 05/25/20 14:11 Albumin/Globulin Ratio 1.1 % 05/25/20 14:11 Urine Color Katrin (Yellow) 05/25/20 16:19 Urine Turbidity Cloudy (Clear) 05/25/20 16:19 Urine pH 6.0 (5.0-7.0) 05/25/20 16:19 Ur Specific [place] 1.013 (1.003-1.030) 05/25/20 16:19 Urine Protein 100 mg/dl mg/dL (Negative) 05/25/20 16:19 Urine Glucose (UA) Neg mg/dL (Negative) 05/25/20 16:19 Urine Ketones Neg mg/dL (Negative) 05/25/20 16:19 Urine Blood Lg (Negative) 05/25/20 16:19 Urine Nitrite Pos (Negative) 05/25/20 16:19 Urine Bilirubin Neg (Negative) 05/25/20 16:19 Urine Urobilinogen < 2.0 mg/dL (<2.0) 05/25/20 16:19 Ur Leukocyte Esterase Lg (Negative) 05/25/20 16:19 Urine WBC (Auto) > 182.0 /HPF (0.0-6.0) H 05/25/20 16:19 Urine RBC (Auto) > 182.0 /HPF (0.0-6.0) 05/25/20 16:19 U Epithel Cells (Auto) 1.0 /HPF (0-13.0) 05/25/20 16:19 Urine WBC Clumps 3+ /HPF 05/25/20 16:19 Hyaline Casts 9 /LPF 05/25/20 16:19 Urine Mucus Few /HPF 05/25/20 16:19 Urine Yeast (Budding) 2+ /HPF 05/25/20 16:19 Microbiology: Microbiology 05/25/20 14:21 Peripheral/Venous Blood Culture - Preliminary NO GROWTH AFTER 24 HOURS 05/25/20 14:21 Peripheral/Venous Blood Culture - Preliminary NO GROWTH AFTER 24 HOURS 05/25/20 16:19 Urine,Casillas Port Urine Culture - Preliminary Casillas/IV: Voiding Method Indwelling Catheter IV Catheter Type [Left Forearm INT / Saline Lock ] IV Catheter Type [Right INT / Saline Lock Antecubital] Active Medications - Current Medications Current Medications: Generic Name Dose Route Start Last Admin Trade Name Freq PRN Reason Stop Dose Admin Acetaminophen 650 mg 05/25/20 18:43 Tylenol PO Q4H PRN Pain MILD(1-3)/Fever >100.5/LOUISE Albuterol 2.5 mg 05/25/20 18:43 Proventil IH Q4HRT PRN Shortness Of Breath Clotrimazole 1 applic 05/25/20 22:00 05/26/20 21:31 Lotrimin TP Not Given BID JERAMY Dicyclomine HCl 10 mg 05/25/20 22:00 05/26/20 21:29 Bentyl PO 10 mg QID JERAMY Administration Famotidine 20 mg 05/26/20 10:00 05/26/20 21:29 Pepcid PO 20 mg BID JERAMY Administration Sodium Chloride 1,000 mls @ 125 mls/hr 05/25/20 18:45 05/27/20 04:57 Nacl 0.9% 1000 Ml IV 125 mls/hr DIRECT JERAMY Administration Ceftriaxone Sodium 1 gm in 50 mls @ 100 mls/hr 05/26/20 10:00 05/26/20 10:35 Rocephin/Ns 1 Gm/50 Ml IV 100 mls/hr Q24HR JERAMY Administration Protocol Ondansetron HCl 4 mg 05/25/20 18:43 Zofran IV Q8H PRN Nausea And Vomiting Oxycodone/Acetaminophen 1 tab 05/25/20 18:45 05/26/20 21:29 Percocet 5/325 PO 1 tab Q6HR PRN Administration PAIN Sodium Chloride 10 ml 05/25/20 22:00 05/26/20 21:31 Sodium Chloride Flush Syringe 10 Ml IV 10 ml BID JERAMY Administration Sodium Chloride 10 ml 05/25/20 18:43 Sodium Chloride Flush Syringe 10 Ml IV PRN PRN LINE FLUSH
[2020-05-27] MEDS: cefTRIAXone/NS 1 GM/50 ML 1 GM/50 ML BAG IV SCH (09:32)
[2020-05-27] MEDS: DICYCLOMINE 10 MG CAP PO SCH ×4 (09:33→21:16)
[2020-05-27] MEDS: FAMOTIDINE 20 MG TAB PO SCH ×2 (09:33→21:16)
[2020-05-27] MEDS: CLOTRIMAZOLE 1% CREAM 15 GM TP SCH ×2 (09:33→21:18)
[2020-05-27 09:59] LABS: Eosinophils # (Auto) 0.1 K/mm3 (0.0-0.4); Monocytes # (Auto) 0.3 K/mm3 (0.0-0.8); Monocytes % (Auto) 12.1 % (0.0-7.3)
[2020-05-27 10:54] LABS: Basophils % (Manual) 0 % (0.0-1.8); Total Cells Counted 100
[2020-05-27 10:55] LABS: Platelet Estimate Consistent w Auto; RBC Morphology Normal
[2020-05-27] MEDS: oxyCODONE /ACETAMINOPHEN 5-325MG TAB PO PRN (15:40)
--- NOTE | 2020-05-28 09:01 | Progress Note ---
Assessment and Plan Assessment and plan: UTI (urinary tract infection) Urinalysis, CBC, CMP, IV antibiotic therapy, supportive care. Sepsis. Present on admission. Etiology secondary to UTI. Continue antibiotics. HEATHER (acute kidney injury) Monitor urine output every shift, IV fluid resuscitation therapy, BMP, repeat BMP in a.m. to monitor serum creatinine. Hyponatremia syndrome IV fluid resuscitation therapy, BMP, repeat BMP in a.m. to monitor serum sodium. Urinary obstruction Patient underwent bladder scan in the emergency department and subsequent placement of Casillas catheter for bladder decompression. Outpatient urology follow-up. Check CT abd/pelvis for further evaluation DVT prophylaxis SCD to bilateral lower extremities while in bed, patient is ambulatory. 05/27/2020. Blood cultures x24 hours are negative. Continue to follow blood and urine cultures. Acute kidney injury resolved. Etiology secondary to vasomotor nephropathy. Follow-up CBC and BMP in a.m. 05/28/2020. CT scan reveals chronic outlet obstruction. No stones or hydronephrosis. Consider urology consultation. Blood and urine cultures remain negative. Continue IV antibiotics. Anticipate discharge in a.m. History Interval history: 64 YO Male with CaP S/P Radiation Therapy, OA presents to ED for evaluation. Patient states that he had experienced abdominal discomfort over the past 1 month with progressively worsening symptoms over the past 2 days. Patient acknowledges dysuria as well as urinary urgency. Patient also acknowledges small urine stream. Hospitalist Physical - Constitutional Vitals: Temp Pulse Resp BP Pulse Ox 99.0 F 81 20 102/72 98 05/28/20 05:51 05/28/20 05:51 05/28/20 05:51 05/28/20 05:51 05/28/20 05:51 General appearance: Present: no acute distress - EENT Eyes: Present: PERRL, EOM intact ENT: hearing intact, clear oral mucosa, dentition normal - Neck Neck: Present: supple, normal ROM - Respiratory Respiratory effort: normal Respiratory: bilateral: CTA - Cardiovascular Rhythm: regular Heart Sounds: Present: S1 & S2. Absent: gallop, rub - Extremities Extremities: no ischemia, No edema, Full ROM - Abdominal General gastrointestinal: soft, non-tender, non-distended, normal bowel sounds - Integumentary Integumentary: Present: clear, warm, dry - Neurologic Neurologic: CNII-XII intact, moves all extremities Results - Labs CBC & Chem 7: 10/17/20 05:16 05/27/20 05:16 Labs: Laboratory Last Values WBC 2.9 K/mm3 (4.5-11.0) L 05/27/20 05:16 RBC 3.20 M/mm3 (3.65-5.03) L 05/27/20 05:16 Hgb 10.1 gm/dl (11.8-15.2) L D 05/27/20 05:16 Hct 29.3 % (35.5-45.6) L D 05/27/20 05:16 MCV 92 fl (84-94) 05/27/20 05:16 MCH 32 pg (28-32) 05/27/20 05:16 MCHC 35 % (32-34) H 05/27/20 05:16 RDW 14.2 % (13.2-15.2) 05/27/20 05:16 Plt Count 289 K/mm3 (140-440) 05/27/20 05:16 [place] % (Auto) 12.1 % (0.0-7.3) H 05/27/20 05:16 Eos % (Auto) 2.0 % (0.0-4.3) 05/27/20 05:16 [place] # (Auto) 0.3 K/mm3 (0.0-0.8) 05/27/20 05:16 Eos # (Auto) 0.1 K/mm3 (0.0-0.4) 05/27/20 05:16 Baso # (Auto) 0.0 K/mm3 (0.0-0.1) 05/27/20 05:16 Add Manual Diff Complete 05/27/20 05:16 Total Counted 100 05/27/20 05:16 Seg Neutrophils % 73.2 % (40.0-70.0) H 05/27/20 05:16 Seg Neuts % (Manual) 77.0 % (40.0-70.0) H 05/27/20 05:16 Band Neutrophils % 1.0 % 05/27/20 05:16 Lymphocytes % (Manual) 10.0 % (13.4-35.0) L 05/27/20 05:16 Reactive Lymphs % (Man) 2.0 % 05/27/20 05:16 Monocytes % (Manual) 8.0 % (0.0-7.3) H 05/27/20 05:16 Eosinophils % (Manual) 2.0 % (0.0-4.3) 05/27/20 05:16 Basophils % (Manual) 0 % (0.0-1.8) 05/27/20 05:16 Metamyelocytes % 0 % 05/27/20 05:16 Myelocytes % 0 % 05/27/20 05:16 Promyelocytes % 0 % 05/27/20 05:16 Blast Cells % 0 % 05/27/20 05:16 Nucleated RBC % Not Reportable 05/27/20 05:16 Seg Neutrophils # 2.1 K/mm3 (1.8-7.7) 05/27/20 05:16 Seg Neutrophils # Man 2.2 K/mm3 (1.8-7.7) 05/27/20 05:16 Band Neutrophils # 0.0 K/mm3 05/27/20 05:16 Lymphocytes # (Manual) 0.3 K/mm3 (1.2-5.4) L 05/27/20 05:16 Abs React Lymphs (Man) 0.1 K/mm3 05/27/20 05:16 Monocytes # (Manual) 0.2 K/mm3 (0.0-0.8) 05/27/20 05:16 Eosinophils # (Manual) 0.1 K/mm3 (0.0-0.4) 05/27/20 05:16 Basophils # (Manual) 0.0 K/mm3 (0.0-0.1) 05/27/20 05:16 Metamyelocytes # 0.0 K/mm3 05/27/20 05:16 Myelocytes # 0.0 K/mm3 05/27/20 05:16 Promyelocytes # 0.0 K/mm3 05/27/20 05:16 Blast Cells # 0.0 K/mm3 05/27/20 05:16 WBC Morphology Not Reportable 05/27/20 05:16 Hypersegmented Neuts Not Reportable 05/27/20 05:16 Hyposegmented Neuts Not Reportable 05/27/20 05:16 Hypogranular Neuts Not Reportable 05/27/20 05:16 Smudge Cells Not Reportable 05/27/20 05:16 Toxic Granulation Not Reportable 05/27/20 05:16 Toxic Vacuolation Not Reportable 05/27/20 05:16 Dohle Bodies Not Reportable 05/27/20 05:16 Pelger-Huet Anomaly Not Reportable 05/27/20 05:16 Dhara Rods Not Reportable 05/27/20 05:16 Platelet Estimate Consistent w auto 05/27/20 05:16 Clumped Platelets Not Reportable 05/27/20 05:16 Plt Clumps, EDTA Not Reportable 05/27/20 05:16 Large Platelets Not Reportable 05/27/20 05:16 Giant Platelets Not Reportable 05/27/20 05:16 Platelet Satelliting Not Reportable 05/27/20 05:16 Plt Morphology Comment Not Reportable 05/27/20 05:16 RBC Morphology Normal 05/27/20 05:16 Dimorphic RBCs Not Reportable 05/27/20 05:16 Polychromasia Not Reportable 05/27/20 05:16 Hypochromasia Not Reportable 05/27/20 05:16 Poikilocytosis Not Reportable 05/27/20 05:16 Anisocytosis Not Reportable 05/27/20 05:16 Microcytosis Not Reportable 05/27/20 05:16 Macrocytosis Not Reportable 05/27/20 05:16 Spherocytes Not Reportable 05/27/20 05:16 Pappenheimer Bodies Not Reportable 05/27/20 05:16 Sickle Cells Not Reportable 05/27/20 05:16 Target Cells Not Reportable 05/27/20 05:16 Tear Drop Cells Not Reportable 05/27/20 05:16 Ovalocytes Not Reportable 05/27/20 05:16 Helmet Cells Not Reportable 05/27/20 05:16 [place] Bodies Not Reportable 05/27/20 05:16 [place] Rings Not Reportable 05/27/20 05:16 [place] Cells Not Reportable 05/27/20 05:16 Bite Cells Not Reportable 05/27/20 05:16 Crenated Cell Not Reportable 05/27/20 05:16 Elliptocytes Not Reportable 05/27/20 05:16 Acanthocytes (Spur) Not Reportable 05/27/20 05:16 Rouleaux Not Reportable 05/27/20 05:16 Hemoglobin C Crystals Not Reportable 05/27/20 05:16 Schistocytes Not Reportable 05/27/20 05:16 Malaria parasites Not Reportable 05/27/20 05:16 Bubba Bodies Not Reportable 05/27/20 05:16 Hem Pathologist Commnt No 05/27/20 05:16 APTT 24.8 Sec. (24.2-36.6) 05/25/20 15:03 Sodium 136 mmol/L (137-145) L 05/27/20 05:16 Potassium 4.4 mmol/L (3.6-5.0) 05/27/20 05:16 Chloride 102.7 mmol/L (98-107) 05/27/20 05:16 Carbon Dioxide 26 mmol/L (22-30) 05/27/20 05:16 Anion Gap 12 mmol/L 05/27/20 05:16 BUN 19 mg/dL (9-20) 05/27/20 05:16 Creatinine 0.9 mg/dL (0.8-1.3) 05/27/20 05:16 Estimated GFR > 60 ml/min 05/27/20 05:16 BUN/Creatinine Ratio 21 % 05/27/20 05:16 Glucose 99 mg/dL (75-100) 05/27/20 05:16 Lactic Acid 1.20 mmol/L (0.7-2.0) 05/25/20 17:21 Calcium 8.3 mg/dL (8.4-10.2) L 05/27/20 05:16 Total Bilirubin 1.00 mg/dL (0.1-1.2) 05/25/20 14:11 AST 11 units/L (5-40) 05/25/20 14:11 ALT 11 units/L (7-56) 05/25/20 14:11 Alkaline Phosphatase 96 units/L (35-129) 05/25/20 14:11 Total Protein 7.8 g/dL (6.3-8.2) 05/25/20 14:11 Albumin 4.0 g/dL (3.9-5) 05/25/20 14:11 Albumin/Globulin Ratio 1.1 % 05/25/20 14:11 Urine Color [place] (Yellow) 05/25/20 16:19 Urine Turbidity Cloudy (Clear) 05/25/20 16:19 Urine pH 6.0 (5.0-7.0) 05/25/20 16:19 Ur Specific [place] 1.013 (1.003-1.030) 05/25/20 16:19 Urine Protein 100 mg/dl mg/dL (Negative) 05/25/20 16:19 Urine Glucose (UA) Neg mg/dL (Negative) 05/25/20 16:19 Urine Ketones Neg mg/dL (Negative) 05/25/20 16:19 Urine Blood Lg (Negative) 05/25/20 16:19 Urine Nitrite Pos (Negative) 05/25/20 16:19 Urine Bilirubin Neg (Negative) 05/25/20 16:19 Urine Urobilinogen < 2.0 mg/dL (<2.0) 05/25/20 16:19 Ur Leukocyte Esterase Lg (Negative) 05/25/20 16:19 Urine WBC (Auto) > 182.0 /HPF (0.0-6.0) H 05/25/20 16:19 Urine RBC (Auto) > 182.0 /HPF (0.0-6.0) 05/25/20 16:19 U Epithel Cells (Auto) 1.0 /HPF (0-13.0) 05/25/20 16:19 Urine WBC Clumps 3+ /HPF 05/25/20 16:19 Hyaline Casts 9 /LPF 05/25/20 16:19 Urine Mucus Few /HPF 05/25/20 16:19 Urine Yeast (Budding) 2+ /HPF 05/25/20 16:19 Microbiology: Microbiology 05/25/20 14:21 Peripheral/Venous Blood Culture - Preliminary NO GROWTH AFTER 48 HOURS 05/25/20 14:21 Peripheral/Venous Blood Culture - Preliminary NO GROWTH AFTER 48 HOURS 05/25/20 16:19 Urine,[place] Port Urine Culture - Final Cas[place]/IV: Voiding Method Indwelling Catheter IV Catheter Type [Left Forearm INT / Saline Lock ] IV Catheter Type [Right INT / Saline Lock Antecubital] Active Medications - Current Medications Current Medications: Generic Name Dose Route Start Last Admin Trade Name Freq PRN Reason Stop Dose Admin Acetaminophen 650 mg 05/25/20 18:43 Tylenol PO Q4H PRN Pain MILD(1-3)/Fever >100.5/LOUISE Albuterol 2.5 mg 05/25/20 18:43 Proventil IH Q4HRT PRN Shortness Of Breath Clotrimazole 1 applic 10/15/20 22:00 05/27/20 21:18 Lotrimin TP Not Given BID JERAMY Dicyclomine HCl 10 mg 05/25/20 22:00 05/27/20 21:16 Bentyl PO 10 mg QID JERAMY Administration Famotidine 20 mg 05/26/20 10:00 05/27/20 21:16 Pepcid PO 20 mg BID JERAMY Administration Sodium Chloride 1,000 mls @ 125 mls/hr 05/25/20 18:45 05/27/20 04:57 Nacl 0.9% 1000 Ml IV 125 mls/hr DIRECT JERAMY Administration Ceftriaxone Sodium 1 gm in 50 mls @ 100 mls/hr 05/26/20 10:00 05/27/20 09:32 Rocephin/Ns 1 Gm/50 Ml IV 06/01/20 12:00 100 mls/hr Q24HR JERAMY Administration Protocol Ondansetron HCl 4 mg 05/25/20 18:43 Zofran IV Q8H PRN Nausea And Vomiting Oxycodone/Acetaminophen 1 tab 05/25/20 18:45 05/27/20 15:40 Percocet 5/325 PO 1 tab Q6HR PRN Administration PAIN Sodium Chloride 10 ml 05/25/20 22:00 05/27/20 21:17 Sodium Chloride Flush Syringe 10 Ml IV 10 ml BID JERAMY Administration Sodium Chloride 10 ml 05/25/20 18:43 Sodium Chloride Flush Syringe 10 Ml IV PRN PRN LINE FLUSH
--- NOTE | 2020-05-28 09:27 | Cat Scan Report ---
CT ABDOMEN PELVIS WITHOUT CONTRAST INDICATION / CLINICAL INFORMATION: sepsis, UTI. TECHNIQUE: Axial CT images were obtained through the abdomen and pelvis without IV contrast. All CT scans at [facility] location are performed using CT dose reduction for ALARA by means of automated exposure control. COMPARISON: 05/26/2020. FINDINGS: LOWER CHEST: No significant abnormality. LIVER: No significant abnormality. GALLBLADDER: No significant abnormality. BILE DUCTS: No significant abnormality. PANCREAS: No significant abnormality. SPLEEN: No significant abnormality. ADRENALS: No significant abnormality. RIGHT KIDNEY and URETER: No significant abnormality. LEFT KIDNEY and URETER: No significant abnormality. STOMACH and SMALL BOWEL: No significant abnormality. COLON: Large amounts of feces is present in the colon APPENDIX: No significant abnormality. PERITONEUM: No free fluid. No free air. No fluid collection. LYMPH NODES: No significant adenopathy. AORTA and ARTERIES: No significant abnormality. IVC and VEINS: No significant abnormality. URINARY BLADDER: Casillas catheter in place with bladder wall thickening. REPRODUCTIVE ORGANS: No significant abnormality ADDITIONAL FINDINGS: None. SKELETAL SYSTEM: No significant abnormality. IMPRESSION: 1. No interval changes compared to previous CT Signer Name: Geronimo Loving MD Signed: 05/28/2020 9:23 AM Workstation Name: [id number]
[2020-05-28] MEDS: cefTRIAXone/NS 1 GM/50 ML 1 GM/50 ML BAG IV SCH (09:36)
[2020-05-28] MEDS: DICYCLOMINE 10 MG CAP PO SCH ×4 (09:36→21:49)
[2020-05-28] MEDS: FAMOTIDINE 20 MG TAB PO SCH ×2 (09:36→21:49)
[2020-05-28] MEDS: CLOTRIMAZOLE 1% CREAM 15 GM TP SCH ×2 (09:37→21:50)
[2020-05-29] MEDS: cefTRIAXone/NS 1 GM/50 ML 1 GM/50 ML BAG IV SCH (09:52)
[2020-05-29] MEDS: DICYCLOMINE 10 MG CAP PO SCH ×2 (09:53→14:00)
[2020-05-29] MEDS: FAMOTIDINE 20 MG TAB PO SCH (09:53)
[2020-05-29] MEDS: CLOTRIMAZOLE 1% CREAM 15 GM TP SCH (09:54)
[2020-05-29 12:34] VITALS: BP 130/84
--- NOTE | 2020-05-29 14:07 | Discharge Summary ---
Providers - Providers Date of Admission: 05/25/20 18:43 Date of discharge: 05/29/20 Attending physician: ANUJ ESTRADA Primary care physician: ALLOCATIONS CLERK Hospitalization Reason for admission: UTI/bladder outlet obstruction/prostate cancer Condition: Fair Pertinent studies: CT abdomen and pelvis Chest x-ray Hospital course: 64 YO Male with history of prostate cancer S/P Radiation follows with private urologist was admitted through emergency room with symptoms of dysuria urinary urgency and frequency bladder outlet obstruction, requiring continuous Casillas catheterization. Patient was placed on empiric antibiotics , urine and blood cultures were negative to date. Patient had acute kidney injury, with elevated BUN and creatinine probably secondary to vasomotor nephropathy, obstructive uropathy secondary to bladder outlet obstruction, patient's renal function closely monitored nephrotoxins avoided, treated with IV hydration, and continues bladder catheterization And renal function returned to baseline normal levels, today patient is comfortable no new complaints vital signs stable Patient needs to follow-up with urologist for further evaluation and management, patient will be discharged with Casillas in place And strongly advised him not to remove until he sees his private urologist Patient also was given prescription for antibiotic Bactrim for another 7 days total 10 days. Patient is hemodynamically and clinically stable with guarded prognosis. Discharge diagnosis: -- UTI (urinary tract infection) Current Visit: Yes Status: Acute -- HEATHER (acute kidney injury) POA Current Visit: Yes Status: Acute Due to vasomotor nephropathy, resolved -- Hyponatremia : Resolved Current Visit: Yes Status: Acute --Urinary obstruction; continues Casillas catheterization Current Visit: Yes Status: Acute --History of prostate cancer; Follows with private urologist -- DVT prophylaxis Current Visit: Yes Status: Acute . --Advance care planning Current Visit: Yes Status: Acute Patient education Patient is stable at discharge Disposition: DC-01 TO HOME OR SELFCARE Time spent for discharge: 33 min Core Measure Documentation - Palliative Care Palliative Care/ Comfort Measures: Not Applicable - Core Measures Any of the following diagnoses?: none Exam - Constitutional Vitals: Temp Pulse Resp BP Pulse Ox 98.8 F 87 16 130/84 99 05/29/20 12:05 05/29/20 12:05 05/29/20 12:05 05/29/20 12:05 05/29/20 12:05 General appearance: Present: no acute distress, well-nourished - EENT Eyes: Present: PERRL, EOM intact - Neck Neck: Present: supple, normal ROM - Respiratory Respiratory effort: normal Respiratory: bilateral: diminished, negative: rales, rhonchi, wheezing - Cardiovascular Rhythm: regular Heart Sounds: Present: S1 & S2 - Extremities Extremities: no ischemia, No edema - Abdominal General gastrointestinal: Present: soft, non-tender, non-distended, normal bowel sounds - Integumentary Integumentary: Present: clear, warm - Musculoskeletal Musculoskeletal: strength equal bilaterally - Psychiatric Psychiatric: appropriate mood/affect, cooperative - Neurologic Neurologic: moves all extremities Plan Activity: advance as tolerated Diet: regular Additional Instructions: Discharge patient with Casillas in place[do not remove the Casillas], give leg bag. Follow-up with private urologist within 1 week. Do not remove the Casillas till you see urologist Follow up with: PRIMARY CARE, [Primary Care Provider] - 7 Days Prescriptions: Sulfamethoxazole/Trimethoprim [Bactrim DS TAB] 1 each PO BID #14 tablet
== END 2020-05-29 16:46 | disposition home or self-care (01) | DRG 689 ==
LOC: ED 13:08 → 3A 18:43
PROVIDERS: ADMIT Internal Medicine; ATTEND Internal Medicine
DX: N30.01 Acute cystitis with hematuria (principal); N17.0 Acute kidney failure with tubular necrosis; E87.1 Hypo-osmolality and hyponatremia; N13.9 Obstructive and reflux uropathy, unspecified; M19.90 Unspecified osteoarthritis, unspecified site; Z85.46 Personal history of malignant neoplasm of prostate; Z79.899 Other long term (current) drug therapy
CPT/HCPCS: 36415; 71045; 74176; 80048; 80053; 81001; 82140; 85007; 85025; 85027; 85730; 87040; 87086; 93005; 94760; 96361; 96365; G0378; J0696; J7030